=== PATIENT | male | born 1965 | race Caucasian/White ===

== ENCOUNTER 2017-03-05 17:46 | Emergency (ER) | payer MEDICAID ==
[~2017-03-05] VITALS: Ht 170.2 cm; Wt 72.6 kg
[2017-03-05 18:27] VITALS: BP 128/70
[2017-03-05] MEDS ORDERED: GUAIFENESIN/D-METHORPHAN HB 5 ML UDC ONE (19:21)
[2017-03-05] MEDS ORDERED: IBUPROFEN 600 MG TABLET PO ONE ×2 (19:22→19:30)
[2017-03-05] MEDS ORDERED: GUAIFENESIN/D-METHORPHAN HB 5 ML UDC PO ONE (19:30)
== END 2017-03-05 19:33 | disposition home or self-care (01) ==
LOC: ER 17:48
DX: J06.9 Acute upper respiratory infection, unspecified (principal); Z88.1 Allergy status to other antibiotic agents
CPT/HCPCS: 99283; A4606; Z7610

== ENCOUNTER 2017-05-16 22:49 | Emergency (ER) | payer MEDICAID ==
[~2017-05-16] VITALS: Ht 172.7 cm; Wt 65.8 kg
--- NOTE | 2017-05-16 23:42 | NUR ---
PT BIBSELF C/O FEVER, HEADACHE AND REDNESS ON FACE X 3 DAYS. 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 PT AOX3 RR EVEN AND UNLABORED. NO SOB NOTED. NAD NOTED. NO NVD AT THIS TIME. PT GOWNED AND PLACED ON MONITOR WAITING FOR MD DONALD.
--- NOTE | 2017-05-16 23:44 | NUR ---
52 Y/O MALE PLACED IN BED 4 C/O ALLERIC REACTION. RASH ON FACE AND CHEST. PT C/O INTENSE ITCHING.
--- NOTE | 2017-05-16 23:45 | NUR ---
PT ALSO C/O RUNNY NOSE AND FLU-LIKE SYMPTOMS.
[2017-05-17] MEDS ORDERED: diphenhydrAMINE HCL 50 MG CAPSULE PO ONE (00:30)
[2017-05-17] MEDS ORDERED: FAMOTIDINE (20 MG) 20 MG TABLET PO ONE (00:30)
[2017-05-17] MEDS ORDERED: DEXAMETHASONE SOD PHOSPHATE 4 MG/ML VIAL IM ONE (00:30)
[2017-05-17] MEDS ORDERED: predniSONE 20 MG TABLET PO ONE (00:30)
[2017-05-17] MEDS ORDERED: diphenhydrAMINE HCL 25 MG CAPSULE ONE (00:31)
[2017-05-17] MEDS ORDERED: predniSONE 20 MG TABLET ONE (00:32)
[2017-05-17] MEDS ORDERED: FAMOTIDINE (20 MG) 20 MG TABLET ONE (00:32)
[2017-05-17] MEDS ORDERED: DEXAMETHASONE SOD PHOSPHATE 10 MG/ML VIAL ONE (00:43)
--- NOTE | 2017-05-17 01:10 | NUR ---
Patient discharged to home via taxi in stable condition. Written and verbal after care instructions given. Patient verbalizes understanding of instruction. Patient is ambulatory with steady gait, vss. nad noted on dc. No further complaints.
[2017-05-17 01:11] VITALS: BP 132/65
== END 2017-05-17 01:12 | disposition home or self-care (01) ==
LOC: ER 22:51
DX: H10.13 Acute atopic conjunctivitis, bilateral (principal); L23.9 Allergic contact dermatitis, unspecified cause; R05 Cough; T36.3X5A Adverse effect of macrolides, initial encounter; I10 Essential (primary) hypertension; Z88.1 Allergy status to other antibiotic agents; Z60.2 Problems related to living alone; Y92.89 Other specified places as the place of occurrence of the external cause
CPT/HCPCS: 96372; 99283; A4606; J1100; Q0163; Z7610

== ENCOUNTER 2017-06-24 19:18 | Emergency (ER) | payer MEDICAID, OTHER ==
[~2017-06-24] VITALS: Ht 172.7 cm; Wt 77.1 kg
[2017-06-24 19:23] VITALS: BP 139/88
--- NOTE | 2017-06-24 20:18 | NUR ---
BEDSIDE FOR PT EVAL
[2017-06-24] MEDS ORDERED: IBUPROFEN 600 MG TABLET PO ONE ×2 (20:23→20:30)
--- NOTE | 2017-06-24 21:16 | NUR ---
Patient discharged to home in stable condition. Written and verbal after care instructions given. Patient verbalizes understanding of instruction. VSS upon discharge
== END 2017-06-24 21:16 | disposition home or self-care (01) ==
LOC: ER 19:20
DX: B34.9 Viral infection, unspecified (principal); E11.9 Type 2 diabetes mellitus without complications; I10 Essential (primary) hypertension; Z60.2 Problems related to living alone
CPT/HCPCS: 36415; 86592; 99283; A4606; Z7610

== ENCOUNTER 2017-10-09 13:28 | Emergency (ER) | payer OTHER ==
[~2017-10-09] VITALS: Ht 160 cm; Wt 74.8 kg
[2017-10-09 13:49] VITALS: BP 143/35
[2017-10-09] MEDS ORDERED: MAG HYDROX/AL HYDROX/SIMETH 30 ML UDC ONE (14:06)
[2017-10-09] MEDS ORDERED: LIDOCAINE VISCOUS 2% UD 15 ML UDC ONE (14:06)
[2017-10-09] MEDS ORDERED: LIDOCAINE VISCOUS 2% UD 15 ML UDC MM ONE (14:30)
[2017-10-09] MEDS ORDERED: MAG HYDROX/AL HYDROX/SIMETH 30 ML UDC PO ONE (14:30)
--- NOTE | 2017-10-09 14:50 | NUR ---
RAPID STREP SENT TO LAB
== END 2017-10-09 16:05 | disposition home or self-care (01) ==
LOC: ER 13:29
DX: J31.2 Chronic pharyngitis (principal); K21.9 Gastro-esophageal reflux disease without esophagitis; I10 Essential (primary) hypertension; E11.9 Type 2 diabetes mellitus without complications; F17.200 Nicotine dependence, unspecified, uncomplicated; Z60.2 Problems related to living alone; Z88.1 Allergy status to other antibiotic agents
CPT/HCPCS: 70360-TC; 86403-TC; 87070-TC; A4606; Z7610

== ENCOUNTER 2017-10-25 10:22 | Emergency (ER) | payer MEDICAID, OTHER ==
[~2017-10-25] VITALS: Ht 172.7 cm; Wt 74.8 kg
[2017-10-25 10:22] VITALS: BP 121/88
== END 2017-10-25 11:49 | disposition home or self-care (01) ==
LOC: ER 10:23
DX: J02.8 Acute pharyngitis due to other specified organisms (principal); B96.89 Other specified bacterial agents as the cause of diseases classified elsewhere; I10 Essential (primary) hypertension; E11.9 Type 2 diabetes mellitus without complications; Z88.1 Allergy status to other antibiotic agents; Z60.2 Problems related to living alone
CPT/HCPCS: 99283; A4606; Z7610

== ENCOUNTER 2018-05-28 23:25 | Emergency (ER) | payer MEDICAID ==
[~2018-05-28] VITALS: Ht 177.8 cm; Wt 76.2 kg
[2018-05-29 00:03] VITALS: BP 144/80
== END 2018-05-29 00:42 | disposition home or self-care (01) ==
LOC: ER 23:32
DX: M54.2 Cervicalgia (principal); H61.21 Impacted cerumen, right ear; I10 Essential (primary) hypertension; E11.9 Type 2 diabetes mellitus without complications; Z88.1 Allergy status to other antibiotic agents; Z60.2 Problems related to living alone; V49.59XA Passenger injured in collision with other motor vehicles in traffic accident, initial encounter; Y93.89 Activity, other specified; Y92.413 State road as the place of occurrence of the external cause; Y99.8 Other external cause status
CPT/HCPCS: 99283; A4606

== ENCOUNTER 2018-10-14 15:42 | Emergency (ER) | payer MEDICAID ==
[~2018-10-14] VITALS: Ht 172.7 cm; Wt 74.8 kg
[2018-10-14] MEDS ORDERED: TETRACAINE HCL/PF 0.5% UD 2 ML BOTTLE ONE (16:51)
[2018-10-14] MEDS ORDERED: FLUORESCEIN SODIUM OPHTH 1 EA STRIP ONE (16:51)
[2018-10-14 16:55] VITALS: BP 121/63
[2018-10-14] MEDS ORDERED: ACETAMINOPHEN ES 500 MG TABLET ONE (17:44)
[2018-10-14] MEDS ORDERED: ACETAMINOPHEN 325 MG TABLET PO ONE (18:00)
== END 2018-10-14 19:09 | disposition home or self-care (01) ==
LOC: ER 15:42
DX: T15.91XA Foreign body on external eye, part unspecified, right eye, initial encounter (principal); I10 Essential (primary) hypertension; E11.9 Type 2 diabetes mellitus without complications; Z88.1 Allergy status to other antibiotic agents; Z60.2 Problems related to living alone; W45.8XXA Other foreign body or object entering through skin, initial encounter; Y93.89 Activity, other specified; Y92.89 Other specified places as the place of occurrence of the external cause; Y99.8 Other external cause status

== ENCOUNTER 2019-02-13 19:30 | Emergency (ER) | payer MEDICAID ==
[~2019-02-13] VITALS: Ht 175.3 cm; Wt 76.2 kg
--- NOTE | 2019-02-13 20:28 | NUR ---
PT PRESENTED TO THE ER WITH A C/O RT FLANK PAIN X 5 DAYS, CHEST PAIN INTERMITTENT X 3 WKS, C/O DIZZINESS. PT AMBULATED TO ER 3 WITH A SLOW STEADY GAIT. URINE SAMPLE OBTAINED IN TRIAGE. PT WAS PLACED ON THE MONITOR AND CONTINUOUS PULSE OX. RESP EVEN AND UNLABORED. VSS. PT IS DANISH SPEAKING ONLY.
--- NOTE | 2019-02-13 20:30 | NUR ---
STARTED SL 18G TO [facility], BLOOD DRAWN AND SENT TO LAB.
[2019-02-13] MEDS ORDERED: MECLIZINE HCL 25 MG TABLET ONE (20:32)
[2019-02-13 20:34] LABS: BASOPHILS # (AUTO) 0.1 /CMM (0.0-0.2); BASOPHILS % (AUTO) 0.7 % (0.0-2.0); EOSINOPHILS % (AUTO) 2.4 % (0.0-6.0); HEMATOCRIT 45 % (39-51); HEMOGLOBIN 15.2 g/dL (13.5-17.5); LYMPHOCYTES # (AUTO) 4.1 /CMM (0.8-4.8); LYMPHOCYTES % (AUTO) 41.9 % (20.0-44.0); MEAN CORPUSCULAR HGB CONC 34 g/dl (31.0-36.0); MEAN CORPUSCULAR VOLUME 91 fL (80-96); MONOCYTES # (AUTO) 1.1 /CMM (0.1-1.30); MONOCYTES % (AUTO) 11.5 % (2.0-12.0); NEUTROPHILS # (AUTO) 4.3 /CMM (1.8-8.9); NEUTROPHILS % (AUTO) 43.5 % (43.0-81.0); PLATELET COUNT (AUTO) 447 /CMM (150-450); RED BLOOD CELL COUNT(AUTO) 4.94 MIL/uL (4.5-6.0); WHITE BLOOD COUNT (AUTO) 9.8 K/uL (4.3-11.0)
[2019-02-13] MEDS: MECLIZINE HCL 25 MG TABLET PO ONE (20:35)
[2019-02-13 20:43] LABS: CALCIUM, SERUM 8.5 mg/dL (8.5-10.1); CARBON DIOXIDE 32 mmol/L (21-32); CHLORIDE 107 mmol/L (98-107); CREATININE 0.8 mg/dL (0.6-1.3); GLUCOSE 105 mg/dL (74-106); POTASSIUM 3.8 mmol/L (3.5-5.1); SODIUM SERUM 143 mmol/L (136-145); UREA NITROGEN, BLOOD 10 mg/dL (7-18)
[2019-02-13 21:04] LABS: APPEARANCE,URINE Clear (CLEAR); BILIRUBIN,URINE Negative (NEGATIVE); BLOOD, URINE Negative Ery/uL (NEGATIVE); COLOR,URINE Yellow (YELLOW); KETONES,URINE Negative (NEGATIVE); LEUKOCYTE ESTERASE ,URINE Negative (NEGATIVE); NITRITE, URINE Negative (NEGATIVE); PROTEIN,URINE Negative (NEGATIVE); UGLUCOSE Negative (NEGATIVE)
--- NOTE | 2019-02-13 21:34 | NUR ---
Patient discharged to home in stable condition. Written and verbal after care instructions given. Patient verbalizes understanding of instruction AND RX. TRANSLATION FOR PT DONE BY ÁNGEL. PT AMBULATED OUT WITH A STEADY GAIT. VSS. NAD NOTED.
--- NOTE | 2019-02-13 21:34 | NUR ---
IV removed. Catheter intact and site benign. Pressure and 4x4 applied to site. No bleeding noted.
[2019-02-13 21:35] VITALS: BP 144/96
== END 2019-02-13 21:36 | disposition home or self-care (01) ==
LOC: ER 19:36
DX: R42 Dizziness and giddiness (principal); R10.9 Unspecified abdominal pain; I10 Essential (primary) hypertension; Z88.1 Allergy status to other antibiotic agents; Z60.2 Problems related to living alone
CPT/HCPCS: 36415; 70450; 71045; 80048; 81001; 84484; 85025; 93005; 99284; J8597; 81000-TC

== ENCOUNTER 2019-06-28 14:58 | Emergency (ER) | payer MEDICAID ==
[~2019-06-28] VITALS: Ht 167.6 cm; Wt 74.4 kg
--- NOTE | 2019-06-28 15:09 | NUR ---
CAME IN FOR LOWER BACK PAIN X 3 WEEKS. ALSO C/O BLURRING OF VISION X 4 MONTHS, TO ER BED 14, HOOKED TO MONITOR, CHANGEDT O HOSP GOWN, WARM BLANKET PROVIDED, AWAITING MD DONALD
--- NOTE | 2019-06-28 15:33 | NUR ---
DR GARCIA AT BEDSIDE
[2019-06-28 16:51] LABS: APPEARANCE,URINE Clear (CLEAR); BILIRUBIN,URINE Negative (NEGATIVE); BLOOD, URINE Negative Ery/uL (NEGATIVE); COLOR,URINE Yellow (YELLOW); KETONES,URINE Negative (NEGATIVE); LEUKOCYTE ESTERASE ,URINE Negative (NEGATIVE); NITRITE, URINE Negative (NEGATIVE); PH,URINE 5.5 (5.0-8.0); PROTEIN,URINE Negative (NEGATIVE); UGLUCOSE Negative (NEGATIVE)
[2019-06-28 16:54] LABS: RBC,URINE 0-2 /HPF (0-2); WBC,URINE 0-2 /HPF (0-3)
[2019-06-28 16:55] LABS: BACTERIA,URINE None seen /HPF (None Seen); SQUAMOUS EPITHELIAL CELL,UR Rare /HPF (None Seen)
[2019-06-28] MEDS ORDERED: IBUPROFEN 600 MG TABLET PO ONE ×2 (17:28→17:30)
--- NOTE | 2019-06-28 17:31 | NUR ---
Patient discharged to home in stable condition. Written and verbal after care instructions given. Patient verbalizes understanding of instruction. Addendum: 06/28/19 at 1737 by FRANK Patient given written and verbal discharge instructions. Patient verbalizes understanding of instructions. Patient is ambulatory with steady gait. Refuses offer of residential placement. Patient given list of available shelters in surrounding area. Patient discharged in proper clothing, name band removed, all belongings returned to patient.
[2019-06-28 17:34] VITALS: BP 132/74
== END 2019-06-28 17:31 | disposition home or self-care (01) ==
LOC: ER 15:04
DX: G89.29 Other chronic pain (principal); M54.5 Low back pain; H53.8 Other visual disturbances; Z59.0 Homelessness; I10 Essential (primary) hypertension; Z88.1 Allergy status to other antibiotic agents; Z60.2 Problems related to living alone
CPT/HCPCS: 81000-TC; 82962-TC

== ENCOUNTER → 2019-08-16 | Emergency (ER) | payer MEDICAID ==
[~2019-08-16] VITALS: Ht 172.7 cm; Wt 79.4 kg
[~2019-08-16] MED LIST: IBUPROFEN 400 MG TABLET ONE; IBUPROFEN 400 MG TABLET PO ONE
[2019-08-16 09:01] VITALS: BP 110/81
--- NOTE | 2019-08-16 09:20 | NUR ---
SEEN AND EXAMINED BY .
== END | disposition home or self-care (01) ==
LOC: ER 08:57
DX: M72.2 Plantar fascial fibromatosis (principal); I10 Essential (primary) hypertension; Z88.1 Allergy status to other antibiotic agents; Z60.2 Problems related to living alone
CPT/HCPCS: 73650-TC

== ENCOUNTER 2019-08-24 13:48 | Emergency (ER) | payer MEDICAID ==
[~2019-08-24] VITALS: Ht 172.7 cm; Wt 72.6 kg
--- NOTE | 2019-08-24 13:50 | NUR ---
came in for right big toe pain s/p cement fell on his foot 09/16 ps, to ER bed 11, hooked to monitor, Dr Rincon at bedside
--- NOTE | 2019-08-24 14:11 | NUR ---
locate technician at bedside
[2019-08-24] MEDS ORDERED: IBUPROFEN 600 MG TABLET PO ONE ×2 (14:21→14:30)
[2019-08-24] MEDS ORDERED: ACETAMINOPHEN ES 500 MG TABLET ONE (14:21)
[2019-08-24] MEDS ORDERED: ACETAMINOPHEN ES 500 MG TABLET PO ONE (14:30)
--- NOTE | 2019-08-24 14:58 | NUR ---
food tray provided, tolerated PO well
--- NOTE | 2019-08-24 15:10 | NUR ---
Patient discharged to home in stable condition. Written and verbal after care instructions given. Patient verbalizes understanding of instruction. Addendum: 08/24/19 at 1514 by FRANK Patient given written and verbal discharge instructions. Patient verbalizes understanding of instructions. Patient is ambulatory with steady gait. Refuses offer of nursing home placement. Patient given list of available shelters in surrounding area. All belongings returned to patient, in proper clothes upon discharge, name band removed
[2019-08-24 15:15] VITALS: BP 129/68
== END 2019-08-24 15:15 | disposition home or self-care (01) ==
LOC: ER 13:51
DX: S90.111A Contusion of right great toe without damage to nail, initial encounter (principal); I10 Essential (primary) hypertension; Z88.1 Allergy status to other antibiotic agents; Z60.2 Problems related to living alone; W20.8XXA Other cause of strike by thrown, projected or falling object, initial encounter; Y93.89 Activity, other specified; Y92.89 Other specified places as the place of occurrence of the external cause; Y99.8 Other external cause status
CPT/HCPCS: 73660-TC

== ENCOUNTER 2019-10-20 11:32 | Emergency (ER) | payer MEDICAID ==
[~2019-10-20] VITALS: Ht 175.3 cm; Wt 74.8 kg
[2019-10-20] MEDS ORDERED: BACI/NEOM/POLY B OINT PKT 1 UDPKT PACKET TP ONE (12:00)
[2019-10-20] MEDS ORDERED: BACI/NEOM/POLY B OINT PKT 1 UDPKT PACKET ONE (12:03)
[2019-10-20 12:05] VITALS: BP 138/65
--- NOTE | 2019-10-20 12:05 | NUR ---
Pt's wounds were cleaned and triple antibiotic ointment was applied to wounds. bandaids and bandages applied. Patient discharged to home in stable condition. Written and verbal after care instructions given. Patient verbalizes understanding of instruction. Pt rec'd extra bandage and ointment to take home. pt ambulated out with a steady gait. Pt is riding his bike home. VSS.
== END 2019-10-20 12:07 | disposition home or self-care (01) ==
LOC: ER 11:37
DX: S50.311A Abrasion of right elbow, initial encounter (principal); S80.212A Abrasion, left knee, initial encounter; I10 Essential (primary) hypertension; Z88.1 Allergy status to other antibiotic agents; Z60.2 Problems related to living alone; V19.88XA Pedal cyclist (driver) (passenger) injured in other specified transport accidents, initial encounter; Y93.89 Activity, other specified; Y92.89 Other specified places as the place of occurrence of the external cause; Y99.8 Other external cause status

== ENCOUNTER 2019-10-28 18:08 | Emergency (ER) | payer MEDICAID ==
[~2019-10-28] VITALS: Ht 167.6 cm; Wt 68.0 kg
--- NOTE | 2019-10-28 19:21 | NUR ---
Patient discharged to home in stable condition. Written and verbal after care instructions given. Patient verbalizes understanding of instruction and RX. Pt provided with cane.
[2019-10-28 19:22] VITALS: BP 137/87
== END 2019-10-28 19:35 | disposition home or self-care (01) ==
LOC: ER 18:12
DX: L03.116 Cellulitis of left lower limb (principal); M25.562 Pain in left knee; I10 Essential (primary) hypertension; Z88.1 Allergy status to other antibiotic agents; Z59.0 Homelessness
CPT/HCPCS: 73564-TC; 73630-TC